=== PATIENT | female | born 1995 | race American Indian/Alaskan Native ===

== ENCOUNTER 2018-05-04 17:27 | Emergency (ER) | payer OTHER ==
[2018-05-04 17:32] VITALS: BP 124/80; PULSE 90; TEMP 98.5; O2SAT 100
--- NOTE | 2018-05-04 17:49 | C.PDOC ---
History Of Present Illness 22 yo female come in for evaluation of painful bumps noted to scalp "after had hair done on 05/02/[address] Otherwise, pt denies fever, chills, swelling, throat tightness or swelling, dyspnea, drooling, wheezing, cough, denies any other active complaints. Ambulate to Ed for evaluation, not in any apparent distress. Time Seen by Provider: 05/04/18 17:38 Chief Complaint (Nursing): Abnormal Skin Integrity History Per: Patient Onset/Duration Of Symptoms: Gradual Past Medical History Reviewed: Historical Data, Nursing Documentation, Vital Signs Vital Signs: Last Vital Signs Temp 98.5 F 05/04/18 17:30 Pulse 90 05/04/18 17:30 Resp 19 05/04/18 17:30 BP 124/80 05/04/18 17:30 Pulse Ox 100 05/04/18 17:30 - Medical History PMH: No Chronic Diseases Family History: States: No Known Family Hx - Social History Hx Alcohol Use: No Hx Substance Use: No - Immunization History Hx Tetanus Toxoid Vaccination: Yes Hx Pneumococcal Vaccination: Yes Review Of Systems Except As Marked, All Systems Reviewed And Found Negative. Constitutional: Negative for: Fever, Chills ENT: Negative for: Mouth Swelling, Throat Pain, Throat Swelling Cardiovascular: Negative for: Chest Pain Respiratory: Negative for: Cough, Shortness of Breath, Wheezing Gastrointestinal: Negative for: Nausea, Vomiting, Abdominal Pain Skin: Positive for: Rash Neurological: Negative for: Weakness, Numbness, Altered Mental Status, Headache, Dizziness Physical Exam - Physical Exam Appears: Well, Non-toxic, No Acute Distress Skin: Normal Color, Warm, Dry Head: Atraumatic, Normacephalic, No Swelling, Other (scattered tender pustules w ith yellow discharge over scalp area. NO edema, no erythema, no flactulance) Eye(s): bilateral: PERRL Ear(s): Bilateral: Normal Nose: No Flaring, No Discharge Oral Mucosa: Moist, No Drooling Tongue: Normal Appearing Lips: Normal Appearing Throat: No Erythema, No Drooling, Other (uvula midline, no edema.) Neck: Trachea Midline, No Midline Cervical Tenderness, No Paracervical Tenderness, No Step Off Deformity, Supple Lymphatic: No Adenopathy Respiratory: No Decreased Breath Sounds, No Accessory Muscle Use, No Stridor, No Wheezing Extremity: Normal ROM Neurological/Psych: Oriented x3, Normal Speech ED Course And Treatment O2 Sat by Pulse Oximetry: 100 Pulse Ox Interpretation: Normal Progress Note: On re-eval, pt is afebrile, hemodynamicalys table. Non-toxic. [place] Po well in ED. PusleOx 100% RA. head: AT/NC, Scalp c/w folliculitis, no flactulance. ENT: No acute findings, uvul amidline, no edema. Neck: Supple, no lymphodenopathy. Lungs: CTA B/L, BS equal B/L. Neuorlogicaly intact. POC (-). Pt advised, ref. to f/u with PMD in 2-3 days for re-eavl. return if any new denis nges. Disposition Counseled Patient/Family Regarding: Diagnosis, Need For Followup, Rx Given - Disposition Referrals: [facility] [Outside] Disposition: HOME/ ROUTINE Disposition Time: 17:53 Condition: STABLE Additional Instructions: Take medication as prescribed Follow up with PMD in 2-3 days for re-evaluation. return to ED if any worsening or new changes. Prescriptions: Chlorhexidine Gluconate 4% [Hibiclens 4%] 20 ml TOP DAILY #1 bottle Doxycycline Hyclate [Doryx] 100 mg PO BID #14 cap Instructions: Folliculitis (DC) - Clinical Impression Clinical Impression: Folliculitis
[2018-05-04 18:05] VITALS: RESP 18
== END 2018-05-04 18:04 | disposition home or self-care (01) ==
LOC: C.ER 17:27
DX: L73.9 Follicular disorder, unspecified (principal)